=== PATIENT | male | born 1955 | race Two or more races ===

== ENCOUNTER 2017-02-04 06:56 | Emergency (ER) | payer MEDICAID ==
[~2017-02-04] VITALS: Ht 177.8 cm; Wt 93.0 kg
--- NOTE | 2017-02-04 07:20 | NUR ---
ANDRES FOR WOUND CHECK ON RIGHT CALF, SPIDER BITE ON 01/30/17. SEEN BY FOR EVENIO. NOTED SWELLING AND REDNESS ON R CALF WOUND, NO DSICHARGE. SEEN BY FOR MICHELE. VSS. SAFETY AND COMFORT MEASURES PROVIDED. WILL MONITOR.
--- NOTE | 2017-02-04 07:30 | NUR ---
IV ACCESS STARTED. BLOOD DRAWN FOR LABS.
--- NOTE | 2017-02-04 07:45 | NUR ---
ZENOBIA AT BS.
[2017-02-04 08:20] LABS: BASOPHILS % (AUTO) 0.3 % (0.0-2.0); EOSINOPHILS # (AUTO) 0.3 /CMM (0.0-0.7); EOSINOPHILS % (AUTO) 3.9 % (0.0-6.0); HEMATOCRIT 45 % (39-51); LYMPHOCYTES # (AUTO) 1.5 /CMM (0.8-4.8); LYMPHOCYTES % (AUTO) 20.5 % (20.0-44.0); MEAN CORPUSCULAR HEMOGLOBIN 28 PG (26.0-33.0); MEAN CORPUSCULAR HGB CONC 34 g/dl (31.0-36.0); MEAN CORPUSCULAR VOLUME 84 fL (80-96); MONOCYTES # (AUTO) 0.7 /CMM (0.1-1.30); MONOCYTES % (AUTO) 9.5 % (2.0-12.0); NEUTROPHILS # (AUTO) 4.8 /CMM (1.8-8.9); NEUTROPHILS % (AUTO) 65.8 % (43.0-81.0); PLATELET COUNT (AUTO) 318 /CMM (150-450); RDW COEFFICIENT OF VARIATION 14.8 (11.5-15.0); RED BLOOD CELL COUNT(AUTO) 5.31 MIL/uL (4.5-6.0); WHITE BLOOD COUNT (AUTO) 7.3 K/uL (4.3-11.0)
[2017-02-04 08:29] LABS: CALCIUM, SERUM 9.4 mg/dL (8.5-10.1); CARBON DIOXIDE 25 mmol/L (21-32); CHLORIDE 105 mmol/L (98-107); GLUCOSE 110 mg/dL (74-106); SODIUM SERUM 142 mmol/L (136-145); UREA NITROGEN, BLOOD 22 mg/dL (7-18)
[2017-02-04 08:30] LABS: APPEARANCE,URINE CLEAR (CLEAR); BILIRUBIN,URINE NEGATIVE (NEGATIVE); BLOOD, URINE TRACE-INTA Ery/uL (NEGATIVE); COLOR,URINE YELLOW (YELLOW); KETONES,URINE NEGATIVE (NEGATIVE); LEUKOCYTE ESTERASE ,URINE NEGATIVE (NEGATIVE); NITRITE, URINE NEGATIVE (NEGATIVE); PROTEIN,URINE NEGATIVE (NEGATIVE); UGLUCOSE NEGATIVE (NEGATIVE); UROBILINOGEN,URINE 0.2 EU/dL (0.2)
[2017-02-04 08:34] LABS: INR 0.92 (0.87-1.13); PROTHROMBIN TIME 9.6 SECS (9.5-12.7)
[2017-02-04 08:37] LABS: TROPONIN I < 0.017 ng/mL (0.00-0.056)
[2017-02-04 08:43] LABS: ALANINE AMINOTRANSFERASE 95 U/L (12-78); ALKALINE PHOSPHATASE 109 U/L (46-116); ASPARTATE AMINOTRANSFERASE 34 U/L (15-37); BILIRUBIN,DIRECT 0.1 mg/dL (0.0-0.2); BILIRUBIN,TOTAL 0.4 mg/dL (0.2-1.0); TOTAL PROTEIN, SERUM 7.5 g/dL (6.4-8.2)
[2017-02-04 08:53] LABS: BACTERIA,URINE None seen /HPF (None Seen); RBC,URINE 0-2 /HPF (0-2); SQUAMOUS EPITHELIAL CELL,UR Few /HPF (None Seen); WBC,URINE NONE SEEN /HPF (0-3)
--- NOTE | 2017-02-04 08:59 | NUR ---
CALLED PHARM FOR IVPB MEDICATION.
[2017-02-04] MEDS ORDERED: VANCOMYCIN 1 GM in IV D5W 250 ML IV ONE (09:00)
[2017-02-04] MEDS ORDERED: CEFTRIAXONE 1GM BAG (ER ONLY) 1 GM/50 ML PIGGYBACK IV ONE (09:00)
[2017-02-04] MEDS ORDERED: CEFTRIAXONE 1GM BAG (ER ONLY) 50 ML IV ONE (09:17)
--- NOTE | 2017-02-04 10:50 | NUR ---
Patient discharged to home in stable condition. Written and verbal after care instructions given. Patient verbalizes understanding of instruction.
--- NOTE | 2017-02-04 10:50 | NUR ---
IV removed. Catheter intact and site benign. Pressure and 4x4 applied to site. No bleeding noted.
[2017-02-04 10:51] VITALS: BP 134/90
== END 2017-02-04 10:51 | disposition home or self-care (01) ==
LOC: ER 07:03
DX: L03.115 Cellulitis of right lower limb (principal); R82.79 Other abnormal findings on microbiological examination of urine; W57.XXXA Bitten or stung by nonvenomous insect and other nonvenomous arthropods, initial encounter; Y93.89 Activity, other specified; Y92.89 Other specified places as the place of occurrence of the external cause; Y99.8 Other external cause status
CPT/HCPCS: 36415; 71010; 73590; 80048; 80076; 81001; 83605; 84484; 85025; 85730; 87040 ×2; 87086; 93005; 93971; 96365; 96367; 99285; A4606; A6403; J0696 ×2; J3370; J7060; Z7610; 81000-TC

== ENCOUNTER 2017-06-23 06:09 | Emergency (ER) | payer MEDICAID ==
[~2017-06-23] VITALS: Ht 177.8 cm; Wt 95.3 kg
--- NOTE | 2017-06-23 06:09 | NUR ---
BB SELF " UPPER ABDOMINAL PAIN SINCE THIS MORNING 11/27" WITH N/V. PT HAS TACHYPNEA WITH BRADYCARDIA AND ATTEMPTING TO VOMIT RIGHT NOW. A/OX4 ABLE TO MAKE NEEDS KNOWN. WILLL CONTINUE TO MONITOR FOR ANY CHANGES DURING THE SHIFT.
--- NOTE | 2017-06-23 06:10 | NUR ---
ER MD TODD AT BEDSIDE FOR EVAL.
[2017-06-23] MEDS ORDERED: ONDANSETRON HCL/PF 4 MG/2 ML VIAL ONE (06:18)
[2017-06-23] MEDS ORDERED: MORPHINE SULFATE INJ 4 MG/ML DISP.SYRIN ONE (06:18)
[2017-06-23] MEDS ORDERED: IV NS 0.9% 1,000 ML BAG IV ONE (06:30)
[2017-06-23] MEDS ORDERED: ONDANSETRON HCL/PF 4 MG/2 ML VIAL IVP ONE (06:30)
[2017-06-23] MEDS ORDERED: MORPHINE SULFATE INJ 2 MG/ML DISP.SYRIN IV ONE (06:30)
--- NOTE | 2017-06-23 06:30 | NUR ---
BALL FRINGE MACHINE OPERATOR AT BEDSIDE TO COLLECT BLOOD SAMPLES
[2017-06-23 06:33] LABS: BASOPHILS % (AUTO) 0.4 % (0.0-2.0); EOSINOPHILS % (AUTO) 3.9 % (0.0-6.0); HEMATOCRIT 49 % (39-51); HEMOGLOBIN 16.4 g/dL (13.5-17.5); LYMPHOCYTES # (AUTO) 1.9 /CMM (0.8-4.8); LYMPHOCYTES % (AUTO) 28.5 % (20.0-44.0); MEAN CORPUSCULAR HGB CONC 34 g/dl (31.0-36.0); MEAN CORPUSCULAR VOLUME 82 fL (80-96); MONOCYTES # (AUTO) 0.5 /CMM (0.1-1.30); MONOCYTES % (AUTO) 7.7 % (2.0-12.0); NEUTROPHILS # (AUTO) 3.9 /CMM (1.8-8.9); NEUTROPHILS % (AUTO) 59.5 % (43.0-81.0); PLATELET COUNT (AUTO) 256 /CMM (150-450); RDW COEFFICIENT OF VARIATION 14.6 (11.5-15.0); RED BLOOD CELL COUNT(AUTO) 5.95 MIL/uL (4.5-6.0); WHITE BLOOD COUNT (AUTO) 6.6 K/uL (4.3-11.0)
--- NOTE | 2017-06-23 06:34 | NUR ---
PT UNABLE TO URINATE AT THIS TIME "I JUST NEED TO NOT MOVE RIGHT NOW"
[2017-06-23 06:38] LABS: CALCIUM, SERUM 8.9 mg/dL (8.5-10.1); CREATININE 1.3 mg/dL (0.6-1.3)
[2017-06-23 06:44] LABS: ALBUMIN 3.8 g/dL (3.4-5.0); BILIRUBIN,DIRECT 0.1 mg/dL (0.0-0.2); BILIRUBIN,TOTAL 0.5 mg/dL (0.2-1.0); TOTAL PROTEIN, SERUM 7.9 g/dL (6.4-8.2)
--- NOTE | 2017-06-23 06:46 | NUR ---
THERESE ZULUAGA AT BEDSIDE SPEAKING TO PT. ABLE TO GET URINE SAMPLE AND CALLED [employer] FOR PICKUP
[2017-06-23] MEDS ORDERED: KETOROLAC TROMETHAMINE 15 MG/ML VIAL ONE (06:47)
--- NOTE | 2017-06-23 06:52 | NUR ---
PT OFF TO CT
[2017-06-23] MEDS ORDERED: KETOROLAC TROMETHAMINE INJ 30 MG/ML VIAL IV ONE (07:00)
--- NOTE | 2017-06-23 07:00 | NUR ---
PT BACK FROM CT
[2017-06-23 07:04] LABS: APPEARANCE,URINE CLEAR (CLEAR); BILIRUBIN,URINE NEGATIVE (NEGATIVE); BLOOD, URINE NEGATIVE Ery/uL (NEGATIVE); COLOR,URINE YELLOW (YELLOW); KETONES,URINE NEGATIVE (NEGATIVE); LEUKOCYTE ESTERASE ,URINE NEGATIVE (NEGATIVE); NITRITE, URINE NEGATIVE (NEGATIVE); PROTEIN,URINE NEGATIVE (NEGATIVE); UGLUCOSE NEGATIVE (NEGATIVE); UROBILINOGEN,URINE 0.2 EU/dL (0.2)
[2017-06-23] MEDS ORDERED: PANTOPRAZOLE 40 MG VIAL ONE (07:19)
--- NOTE | 2017-06-23 07:29 | NUR ---
medicated pt as ordered
[2017-06-23] MEDS ORDERED: PANTOPRAZOLE 40 MG VIAL IV ONE (07:30)
[2017-06-23 08:58] VITALS: BP 149/96
--- NOTE | 2017-06-23 08:58 | NUR ---
Patient discharged to home in stable condition. Written and verbal after care instructions given. Patient verbalizes understanding of instruction.IV removed. Catheter intact and site benign. Pressure and 4x4 applied to site. No bleeding noted. pt ambulatory with a steady gait
== END 2017-06-23 08:59 | disposition home or self-care (01) ==
LOC: ER 06:15
DX: R10.84 Generalized abdominal pain (principal); R10.13 Epigastric pain
CPT/HCPCS: 36415; 80048-TC; 80076-TC; 81000-TC; 83690-TC; 85025-TC; A4606; C9113; J1885; J2270; J2405; J7030; Z7610

== ENCOUNTER 2021-12-05 06:39 | Emergency (ER) | payer MEDICAID ==
[~2021-12-05] VITALS: Ht 177.8 cm; Wt 97.5 kg
--- NOTE | 2021-12-05 06:45 | NUR ---
[id number] THIS 66YO/MALE WITH FROM HOME WITH CC OF DIZZINESS AND NAUSEA. PATIENT IS KNOWN HYPERTENSIVE AND HAS HX OF VERTIGO. AAOX4, ATTACHED TO MONITOR, VITALS CHECKED.
--- NOTE | 2021-12-05 06:46 | NUR ---
SEEN BY DR TUCKER AT BEDSIDE
[2021-12-05] MEDS ORDERED: ONDANSETRON HCL/PF 4 MG/2 ML VIAL IVP ONE (07:00)
[2021-12-05] MEDS ORDERED: IV NS 0.9% 1,000 ML BAG IV ONE (07:00)
[2021-12-05] MEDS ORDERED: MECLIZINE HCL 12.5 MG TABLET PO ONE (07:00)
--- NOTE | 2021-12-05 07:05 | NUR ---
REPORT GIVEN TO BRIDGETTE WISEMAN.
--- NOTE | 2021-12-05 07:13 | NUR ---
FILM RENTAL CLERK AT BEDSIDE.
[2021-12-05 07:20] LABS: BASOPHILS # (AUTO) 0.1 K/uL (0.0-0.2); BASOPHILS % (AUTO) 1.7 % (0.0-2.0); HEMATOCRIT 44 % (39-51); HEMOGLOBIN 14.6 g/dL (13.5-17.5); LYMPHOCYTES # (AUTO) 1.4 K/uL (0.8-4.8); LYMPHOCYTES % (AUTO) 23.7 % (20.0-44.0); MEAN CORPUSCULAR HGB CONC 33 g/dl (31.0-36.0); MEAN CORPUSCULAR VOLUME 81 fL (80-96); MONOCYTES # (AUTO) 0.5 K/uL (0.1-1.30); MONOCYTES % (AUTO) 8.1 % (2.0-12.0); NEUTROPHILS # (AUTO) 3.5 K/uL (1.8-8.9); NEUTROPHILS % (AUTO) 61.5 % (43.0-81.0); PLATELET COUNT (AUTO) 214 K/uL (150-450); RED BLOOD CELL COUNT(AUTO) 5.37 MIL/uL (4.5-6.0); WHITE BLOOD COUNT (AUTO) 5.7 K/uL (4.3-11.0)
[2021-12-05] MEDS ORDERED: ONDANSETRON HCL/PF 4 MG/2 ML VIAL ONE (07:24)
[2021-12-05] MEDS ORDERED: MECLIZINE HCL 25 MG TABLET ONE (07:25)
--- NOTE | 2021-12-05 07:41 | NUR ---
PT HAS LEFT UNIT TO GO TO CT FOR THE HEAD
--- NOTE | 2021-12-05 07:41 | NUR ---
PT TAKEN TO CT VIA KELLY
[2021-12-05 07:55] LABS: ALANINE AMINOTRANSFERASE 25 U/L (12-78); ALBUMIN 3.2 g/dL (3.4-5.0); ALKALINE PHOSPHATASE 84 U/L (46-116); ASPARTATE AMINOTRANSFERASE 20 U/L (15-37); BILIRUBIN,DIRECT 0.1 mg/dL (0.0-0.2); BILIRUBIN,TOTAL 0.6 mg/dL (0.2-1.0); CALCIUM, SERUM 8.4 mg/dL (8.5-10.1); CARBON DIOXIDE 25 mmol/L (21-32); CHLORIDE 106 mmol/L (98-107); CREATININE 1.1 mg/dL (0.6-1.3); GLUCOSE 124 mg/dL (74-106); POTASSIUM 3.4 mmol/L (3.5-5.1); SODIUM SERUM 139 mmol/L (136-145); TOTAL PROTEIN, SERUM 6.5 g/dL (6.4-8.2); UREA NITROGEN, BLOOD 18 mg/dL (7-18)
[2021-12-05] MEDS ORDERED: ONDA4TAB5 PO (08:37)
[2021-12-05] MEDS ORDERED: MECL-159 PO (08:37)
--- NOTE | 2021-12-05 09:05 | NUR ---
IV removed. Catheter intact and site benign. Pressure and 4x4 applied to site. No bleeding noted.Patient discharged to home in stable condition. Written and verbal after care instructions given. Patient verbalizes understanding of instruction.
[2021-12-05 09:07] VITALS: BP 128/74
== END 2021-12-05 09:08 | disposition home or self-care (01) ==
LOC: ER 06:45
DX: R42 Dizziness and giddiness (principal); R11.0 Nausea; Z20.822 Contact with and (suspected) exposure to COVID-19; R00.1 Bradycardia, unspecified
CPT/HCPCS: 99285; 96374; 70450; 71045; 87426; 93005; 85025; 80048; 80076; 36415; 84484; J8597; J2405; J7030; C9803